=== PATIENT | female | born 1945 | race Caucasian/White ===

== ENCOUNTER 2017-10-27 08:00 | Outpatient (CLI) | payer MEDICARE | END 2017-10-27 08:01 | disposition home or self-care (01) | LOC: BICMAMMO 08:00 | PROVIDERS: ATTEND Obstetrics & Gynecology | DX: R92.8 Other abnormal and inconclusive findings on diagnostic imaging of breast (principal) | CPT/HCPCS: G0206; G0279 ==

== ENCOUNTER 2019-02-27 08:21 | Observation (INO) | payer MEDICARE ==
[2019-02-27 08:40] LABS: #Basophils 0.1 thou/uL (0.0-0.2); #Eosinphils 0.2 thou/uL (0.0-0.7); #Lymphocytes 2.3 thou/uL (1.20-3.40); #Monocytes 0.5 thou/uL (0.11-0.59); #Neutrophils 3.1 thou/uL (1.40-6.50); %Basophils 1.4 % (0.0-1.0); %Eosinophils 2.9 % (0.0-10.0); %Lymphocytes 36.9 % (21.0-51.0); %Monocytes 8.2 % (0.0-10.0); %Neutrophils 50.6 % (42.0-75.0); Hemoglobin 14.2 g/dL (12.0-16.0); Mean Corpuscular HGB CONC 30.7 g/dL (32.0-36.0); Mean Corpuscular Hemoglobin 28.1 pg (27.0-31.0); Mean Corpuscular Volume 91.5 fL (78.0-98.0); Mean Platelet Volume 8.5 fL (7.4-10.4); Platelet Count 290 thou/uL (130-400); RBC Distribution Width 11.9 % (11.5-14.5); Red Blood Cell (RBC) Count 5.07 mill/uL (4.20-5.40); White Blood Cell (WBC) Count 6.1 thou/uL (4.8-10.8)
--- NOTE | 2019-02-27 08:52 | RAD ---
EXAM: Chest one view: HISTORY: Chest pain COMPARISON: 04/06/2011 FINDINGS: Heart size: Within normal limits. The lungs: Clear of acute process. No evidence for pneumonia, pleural effusion, acute edema, or pneumothorax, or other significant acute process. IMPRESSION: No significant acute intrathoracic disease.
[2019-02-27 09:02] LABS: ALT (SGPT) 22 U/L (8-55); AST (SGOT) 20 U/L (5-34); Albumin 4.2 g/dL (3.4-4.8); Alkaline Phosphatase 89 U/L (40-150); Anion Gap 14 mmol/L (10-20); BUN (Urea Nitrogen) 22 mg/dL (9.8-20.1); Bilirubin, Total 0.7 mg/dL (0.2-1.2); CK (CPK) 75 U/L (29-168); Calc. Creatinine Clearance 0 mL/min (70-130); Calcium 9.5 mg/dL (7.8-10.44); Carbon Dioxide 25 mmol/L (23-31); Chloride 106 mmol/L (98-107); Estimated GFR-MDRD 71; Globulin 2.6 g/dL (2.4-3.5); Glucose 100 mg/dL (83-110); Lipase 110 U/L (8-78); Potassium 3.9 mmol/L (3.5-5.1); Protein, Total 6.8 g/dL (6.0-8.3); Sodium 141 mmol/L (136-145)
[2019-02-27] MEDS ORDERED: Ondansetron PF 4 MG/2 ML Vial ONE ×3 (09:22→11:34)
[2019-02-27] MEDS ORDERED: Famotidine/PF 20 mg/2ml Vial ONE (09:22)
[2019-02-27] MEDS ORDERED: Morphine 4 MG/ML VIAL ONE (09:22)
[2019-02-27] MEDS ORDERED: Aspirin Chewable 81 MG TAB ONE (09:48)
[2019-02-27] MEDS ORDERED: Metoclopramide HCl 10 MG/2 ML VIAL ONE (11:49)
[2019-02-27 12:38] LABS: Troponin I Less than 0.010 ng/mL (< 0.028)
[2019-02-27] MEDS ORDERED: HYDROcodone/Acetaminophen 7.5/325 mg Tablet PO PRN (12:40)
[2019-02-27] MEDS ORDERED: Acetaminophen 325 MG TAB PO PRN ×2 (12:40→15:23)
[2019-02-27] MEDS ORDERED: Ondansetron PF 4 MG/2 ML Vial IVP PRN (12:40)
[2019-02-27] MEDS ORDERED: Morphine 4 MG/ML VIAL SLOW IVP PRN (13:15)
[2019-02-27] MEDS ORDERED: ISOVUE-370 76%-LOCM 1 ML ONE (14:27)
[2019-02-27] MEDS ORDERED: Iopamidol 370 76% 50 ML VIAL FS ONE (14:27)
[2019-02-27 15:11] LABS: Troponin I Less than 0.010 ng/mL (< 0.028)
--- NOTE | 2019-02-27 15:16 | CT ---
Exam: Abdomen CT scan with and without IV contrast with multiphase imaging: HISTORY: Abdominal pain, elevated lipase. FINDINGS: Minimal linear parenchymal changes in the lung bases having more the appearance of chronic change or mild subsegmental atelectasis. 1.0 cm diameter nonspecific area of minimal arterial enhancement in the dome of the right lobe of the liver with normal noncontrast and delayed imaging, probably a normal perfusion variant. Status post cholecystectomy. Dilatation of the common bile duct up to 1.1 cm with some minimal diffuse intra hepatic ductal dilatation as well as some mild dilatation of the pancreatic duct. No evidence for focal pancreatic mass or abnormal fat stranding peripancreatic fluid to suggest CT evidence for acute pancreatitis. Spleen is unremarkable. Adrenal glands are unremarkable. Slight fullness of both right and left renal upper collecting systems abnormal problem right side but without evidence for ov ert acute obstruction. No renal calculus. Probable small hiatal hernia. 0.5 cm diameter fatty density in the third portion the duodenum probably a small lipoma. IMPRESSION: Unremarkable appearing pancreas. Status post cholecystectomy with common duct and intrahepatic ducts dilatation with mild pancreatic ductal dilatation. Tiny fatty density in the third portion of duodenum probably a small lipoma.
[2019-02-27 16:09] VITALS: BMI 29.5
[2019-02-27] MEDS: Sodium Chloride 0.9% 1,000 ML IV SCH (16:58)
[2019-02-27] MEDS ORDERED: Enoxaparin Sodium 40 MG/0.4 ML SYRINGE SC SCH (17:30)
[2019-02-27] MEDS ORDERED: Sodium Chloride 0.9% (PF) 10 ML VIAL FS PRN (18:21)
[2019-02-27] MEDS ORDERED: Promethazine HCl 25 MG/ML VIAL IM/IV PRN (18:36)
--- NOTE | 2019-02-27 19:00 | HP ---
HISTORY OF PRESENT ILLNESS: This is a 73-year-old white female, relatively healthy, who presents with acute onset of abdominal pain. The patient was doing well until 7 a.m. this morning. She awoke with severe upper abdominal pain. This lasted for 5 to 10 minutes and subsided and then returned immediately. It seemed to come and go. She then presented to the emergency room, where she was given morphine IV. However, that did make her nauseated. Last night she had a taco salad with apple pie. She has no prior history of heart disease. No prior history of hypertension or hyperlipidemia. She is on minimal medications. PAST MEDICAL HISTORY: Allergies history and a 20 year tobacco history, quit in 1989. She is postmenopausal. PAST SURGICAL HISTORY: Include dental surgery, JEFF-BSO, history of bladder suspension, cholecystectomy, appendectomy, and colonoscopy. FAMILY HISTORY: Father with alcoholism. Mother was at 86 years of age. Sibling with pancreatic cancer, who at 72. She does have 1 daughter. SOCIAL HISTORY: She is a nonsmoker. She has a 20 year tobacco history, quit in 1989. She does not drink alcohol. She is retired. She is . She has 1 daughter. She walks her dog daily. MEDICATIONS: Include; 1. Estradiol 0.5 daily. 2. Multivitamin daily. 3. Calcium daily. 4. Fish oil 1000 daily. REVIEW OF SYSTEMS: As above. PHYSICAL EXAMINATION: VITAL SIGNS: Blood pressure 150/96, pulse 63, respirations 15, and afebrile. HEENT: Clear. NECK: Supple. HEART: Regular rate and rhythm. LUNGS: Clear. ABDOMEN: Soft. Epigastric tenderness to palpation. EXTREMITIES: No edema. LABORATORY DATA: White count is 6.1, H and H 14 and 46. Electrolytes normal. Creatinine 0.8 and BUN 22. Troponin 1 less than 0.010 x2. Lipase elevated at 110. ASSESSMENT: Epigastric pain with elevated lipase, possible acute pancreatitis. No prior history. Doubt this is cardiac in origin. Full she does have a. She is status post cholecystectomy. PLAN: 1. IV hydration. 2. Morphine for pain control. 3. Pepcid IV q.12. 4. CT abdomen with and without contrast, rule out possible pancreatic issue. 5. Recheck CBC, comprehensive amylase, and lipase in the a.m. 6. Consult Dr. Mora. Job ID: [id number]
[2019-02-27] MEDS ORDERED: Promethazine HCl 25 MG in Sodium Chloride 0.9% 50 ML IVPB PRN (20:14)
[2019-02-27] MEDS ORDERED: Pantoprazole 40 MG VIAL IVP SCH (21:00)
[2019-02-27] MEDS ORDERED: Famotidine/PF 20 mg/2ml Vial SLOW IVP SCH (21:00)
[2019-02-27] MEDS ORDERED: Promethazine HCl 12.5 MG in Sodium Chloride 0.9% 50 ML IVPB PRN (21:03)
[2019-02-28] MEDS: Sodium Chloride 0.9% 1,000 ML IV SCH (01:05)
--- NOTE | 2019-02-28 02:08 | CON ---
DATE OF CONSULTATION: 02/27/2019 HISTORY OF PRESENT ILLNESS: Ms. Coronel is a pleasant 73-year-old female, whom I was seen previously for colon cancer screening several years ago. She remembered that event, however, I did not. She was feeling in her normal state of health when earlier this morning she was awoken with some lower chest and upper abdomen severe tight pain. She states it was very tight squeezing pain. When this was happening, she was little bit dyspneic. She got a little diaphoretic. It relaxed. She had some vomiting and then it happened again. With that, they went ahead and came to the emergency room here. She ruled out for NH with an EKG and several cardiac enzymes. She was given some fluids, some Zofran, some Phenergan, some Reglan, PPI, and she had labs and a CAT scan done. The labs were completely normal except for a lipase of 110. CAT scan showed abnormal pancreas with a prominent common bile duct and hepatic duct and slight pancreatic ductal dilatation, and possibly a small lipoma in the third portion of duodenum. There were no signs of acute pancreatitis. The patient was admitted to the hospital. She is being started on IV fluid fluids at 125 an hour. She has been put on morphine and Zofran. She has been put on Pepcid. An echocardiogram was ordered for tomorrow. PAST MEDICAL HISTORY: Negative for reflux. Positive for previous appendectomy, hysterectomy, and cholecystectomy. SOCIAL HISTORY: Does not drink, use drugs, or smoke. ALLERGIES: NONE KNOWN. HOME MEDICATIONS: Estradiol. REVIEW OF SYSTEMS: CONSTITUTION: Negative for weight loss, change in appetite, fever, or chills. HEENT negative. CARDIOVASCULAR: She has had no recent substernal chest pain with exertion, orthopnea, dyspnea with exertion. All chest pain issues are new today. RESPIRATORY: No cough or shortness of breath. She was feeling short of breath when she was having acute pain. GI: The patient presently denies diarrhea, at least in the emergency room she states that she did have some. MUSCULOSKELETAL: Normal. SKIN: Normal. ENDOCRINE: Normal. MEDICATIONS: Here, 1. Tylenol. 2. [place]. 3. Lovenox. 4. Pepcid. 5. Morphine. 6. Zofran. 7. Normal saline at 125/hour. PHYSICAL EXAMINATION: VITAL SIGNS: Temperature 98, pulse 69, blood pressure 148/72. GENERAL: She is resting comfortably in bed. She is a little bit nauseated. Oropharynx, no lesions. NECK: Supple without adenopathy. LUNGS: Clear. HEART: Regular rate and rhythm without clicks, rubs, or murmurs. ABDOMEN: Soft and nontender with no rebound or guarding. LABORATORY DATA: White count 6.1, hemoglobin 14.2, platelet count is 290. D-dimer 0.55. Comprehensive metabolic profile; BUN of 22, creatinine 0.8. Liver function tests normal. AST and ALT are 20 and 22, bilirubin is 0.7. Cardiac enzymes negative. Lipase 110. CT scan films reviewed, report reviewed. ASSESSMENT: Acute onset of abdominal pain and lower chest pain this morning. It is a spasm like pain, tight, constricting, with no signs of myocardial infarction. She does have mildly elevated D-dimer, she is on Lovenox, but she has no shortness of breath. There is no radiation of pain to the back. She does have mildly elevated lipase of 110, which is nonspecific, does not confer the diagnosis of pancreatitis especially with CAT scan showing no pancreatic inflammation. Differential diagnoses include esophageal spasm, reflux, early pancreatitis could be etiology with early imaging and blood tests not catching the full process. Viral gastroenteritis, however, is much more likely. RECOMMENDATIONS: Change to IV PPI. Recheck lipase now and recheck labs in the morning. Agree with IV fluids. We will give her some Phenergan and Zofran as well for nausea. Job ID: [id number]
[2019-02-28 07:05] LABS: #Eosinphils 0.1 thou/uL (0.0-0.7); #Lymphocytes 1.6 thou/uL (1.20-3.40); #Monocytes 0.6 thou/uL (0.11-0.59); #Neutrophils 4.9 thou/uL (1.40-6.50); %Basophils 0.4 % (0.0-1.0); %Eosinophils 0.9 % (0.0-10.0); %Lymphocytes 22.4 % (21.0-51.0); %Neutrophils 68.3 % (42.0-75.0); Hemoglobin 12.6 g/dL (12.0-16.0); Mean Corpuscular HGB CONC 33.3 g/dL (32.0-36.0); Mean Corpuscular Hemoglobin 31.1 pg (27.0-31.0); Mean Corpuscular Volume 93.3 fL (78.0-98.0); Mean Platelet Volume 8.5 fL (7.4-10.4); Platelet Count 236 thou/uL (130-400); Red Blood Cell (RBC) Count 4.07 mill/uL (4.20-5.40); White Blood Cell (WBC) Count 7.2 thou/uL (4.8-10.8)
[2019-02-28 07:26] LABS: ALT (SGPT) 24 U/L (8-55); AST (SGOT) 19 U/L (5-34); Albumin 3.4 g/dL (3.4-4.8); Alkaline Phosphatase 69 U/L (40-150); Anion Gap 7 mmol/L (10-20); BUN (Urea Nitrogen) 16 mg/dL (9.8-20.1); Bilirubin, Total 0.7 mg/dL (0.2-1.2); Calc. Creatinine Clearance 88 mL/min (70-130); Calcium 8.2 mg/dL (7.8-10.44); Carbon Dioxide 28 mmol/L (23-31); Chloride 110 mmol/L (98-107); Estimated GFR-MDRD 82; Globulin 2.2 g/dL (2.4-3.5); Glucose 80 mg/dL (83-110); Lipase 12 U/L (8-78); Potassium 3.3 mmol/L (3.5-5.1); Protein, Total 5.6 g/dL (6.0-8.3); Sodium 142 mmol/L (136-145)
[2019-02-28 07:52] VITALS: BP 136/67; TEMP 98.4
--- NOTE | 2019-02-28 07:53 | DIS ---
DATE OF ADMISSION: 02/27/2019 DATE OF DISCHARGE: 02/28/2019 DISCHARGE DIAGNOSES: 1. Abdominal/chest pain. 2. Esophageal spasm. DISCHARGE MEDICATIONS: 1. Protonix 40 daily. 2. Estradiol 0.5 daily. BRIEF HISTORY: A 73-year-old white female, relatively healthy, presented with abdominal pain. She was doing well until approximately 7:00 a.m. in the morning and awoke with upper abdominal pain. It lasted for 5 to 10 minutes and then reoccurred. It seemed to come and go. The night prior, she had a large taco salad with apple pie. No complaints of diaphoresis or shortness of breath. HOSPITAL COURSE: Cardiac enzymes were found to be negative. The patient was given Protonix with relief of pain. The pain has not recurred since admission. She is doing well this morning. She was seen by Dr. Mora, who agreed with esophageal spasm. Lipase was mildly elevated. CT scan of the abdomen was negative. The patient is doing well. She will be discharged on Protonix daily. She will follow up in the office in 1 week. Job ID: [id number]
[2019-02-28] MEDS ORDERED: Enoxaparin Sodium 40 MG/0.4 ML SYRINGE SC SCH (09:00)
== END 2019-02-28 10:25 | disposition home or self-care (01) ==
LOC: ERS 08:21 → ERHOLD 10:10 → 2SW 14:49
PROVIDERS: ADMIT Family Medicine; ATTEND Family Medicine
DX: K22.4 Dyskinesia of esophagus (principal); R79.1 Abnormal coagulation profile; Z87.891 Personal history of nicotine dependence; Z79.899 Other long term (current) drug therapy; Z79.01 Long term (current) use of anticoagulants
CPT/HCPCS: 71045; 74170; 80053 ×2; 82550; 83690 ×2; 84484 ×2; 85025 ×2; 85379; 93005; 96361; 96374; 96375 ×2; 96376 ×2; 99285; G0378 ×3; 36415; C9113; J1650; J2270; J2405; J2550; J2765; J7050; Q9966; Q9967; S0028

== ENCOUNTER 2020-07-30 12:29 | Outpatient (CLI) | payer MEDICARE ==
--- NOTE | 2020-07-30 15:52 | MRI ---
MRI OF THE RIGHT KNEE WITHOUT CONTRAST: INDICATION: Internal derangement. COMPARISON: Right knee radiograph dated 04/15/2020. FINDINGS: There is a moderate-sized semimembranosis-medial gastrocnemius popliteal cyst. There is mild joint e ffusion. Articular cartilage of the patellofemoral compartment appears relatively well maintained. There is d iffuse moderate chondral thinning involving the medial femorotibial joint compartment with small garth inal osteophytes. Articular cartilage of the lateral femorotibial compartment is relatively well main tained. There is a multidirectional predominantly horizontally oriented oblique tear involving the body, post erior junction, and posterior horn of the medial meniscus with partial medial extrusion. There is a small displaced meniscal flap seen within the intercondylar notch measuring approximately 4 mm on silva ge 17 of series 8. The lateral meniscus is intact. The ACL, PCL, MCL, and LCLC are intact. The extensor mechanism is well maintained. There is a 1 cm suspected subchondral insufficiency fracture involving the medial tibial plateau with surrounding marrow edema on image 15 of series 8, image 19 of series 9. There is mild edema involvi ng the subchondral bone plate of the medial femoral condyle. There is a small bone island seen withi n the posteromedial femoral condyle. IMPRESSION: 1. Mild osteoarthrosis of the right knee predominantly affecting the medial femorotibial joint zay rtment with a multidirectional, complex tear involving the medial meniscus with medial extrusion. The lateral meniscus appears intact. 2. Subchondral insufficiency-type fracture involving the medial tibial plateau with mild surrounding edema. Mild reactive edema in the medial femoral condyle. 3. The anterior cruciate ligament, posterior cruciate ligament, medial collateral ligament, and LCLC , and extensor mechanisms are intact. POS: Mack
== END 2020-07-30 12:30 | disposition home or self-care (01) ==
LOC: BICMRI 12:29
PROVIDERS: ATTEND Orthopaedic Surgery
DX: M23.91 Unspecified internal derangement of right knee (principal); M19.011 Primary osteoarthritis, right shoulder; S83.231A Complex tear of medial meniscus, current injury, right knee, initial encounter; M84.461A Pathological fracture, right tibia, initial encounter for fracture; R60.0 Localized edema

== ENCOUNTER 2020-08-15 06:55 | Outpatient (CLI) | payer MEDICARE, OTHER ==
[2020-08-15 14:04] LABS: #Basophils 0.1 thou/uL (0.0-0.2); #Eosinphils 0.4 thou/uL (0.0-0.7); #Lymphocytes 1.8 thou/uL (1.20-3.40); #Monocytes 0.5 thou/uL (0.11-0.59); #Neutrophils 4.1 thou/uL (1.40-6.50); %Basophils 0.8 % (0.0-1.0); %Eosinophils 6.2 % (0.0-10.0); %Monocytes 6.7 % (0.0-10.0); %Neutrophils 60.2 % (42.0-75.0); Hemoglobin 14.5 g/dL (12.0-16.0); Mean Corpuscular HGB CONC 33.6 g/dL (32.0-36.0); Mean Corpuscular Hemoglobin 31.5 pg (27.0-31.0); Mean Corpuscular Volume 93.9 fL (78.0-98.0); Mean Platelet Volume 8.8 fL (7.4-10.4); Platelet Count 266 thou/uL (130-400); RBC Distribution Width 11.7 % (11.5-14.5); Red Blood Cell (RBC) Count 4.59 mill/uL (4.20-5.40); White Blood Cell (WBC) Count 6.9 thou/uL (4.8-10.8)
[2020-08-16 12:05] LABS: SARS-CoV-2 MS2 Positive; SARS-CoV-2 N Gene Negative; SARS-CoV-2 S Gene Negative; SARS-CoV-2 by NAA Not Detected (NotDetected); SARS-CoV-2 orf1ab Negative
--- NOTE | 2020-08-22 13:20 | EKG ---
Test Reason : Blood Pressure : / mmHG Vent. Rate : 074 BPM Atrial Rate : 074 BPM P-R Int : 144 ms QRS Dur : 090 ms QT Int : 362 ms P-R-T Axes : 046 -18 -03 degrees QTc Int : 401 ms Normal sinus rhythm Nonspecific ST and T wave abnormality Abnormal ECG No previous ECGs available Confirmed by DR. Justa SOLIMAN ([id number]) on 08/22/2020 1:19:40 PM Referred By: CAROLYN Confirmed By:DR. Justa SOLIMAN
== END 2020-08-15 06:56 | disposition home or self-care (01) ==
LOC: LABBT 06:55
PROVIDERS: ATTEND Orthopaedic Surgery
DX: Z01.818 Encounter for other preprocedural examination (principal); Z20.828 Contact with and (suspected) exposure to other viral communicable diseases; M23.91 Unspecified internal derangement of right knee
CPT/HCPCS: 85025; 93005; U0003; 87635; 93010

== ENCOUNTER 2020-08-20 06:04 | Day surgery (SDC) | payer MEDICARE ==
[2020-08-19 08:51] VITALS: BMI 33.6
--- NOTE | 2020-08-19 13:12 | HP ---
HISTORY OF PRESENT ILLNESS: The patient is a 75-year-old female with approximately 6-month history of problems with her right knee, which developed after stepping, but no major injury. She has persistent pain with reversal activities. She obtained partial relief from a previous injection in March and use of ibuprofen and naproxen, but she continues to have pain with day-to-day activities including walking, getting dressed, and sleeping. PAST MEDICAL HISTORY: The patient is otherwise in good health. She has had previous appendectomy, cholecystectomy, and hysterectomy. She has no major medical problems. She takes hormone replacement with multivitamins. ALLERGIES: SHE HAS NO KNOWN ALLERGIES. FAMILY HISTORY: Otherwise, unremarkable. SOCIAL HISTORY: Otherwise, unremarkable. REVIEW OF SYSTEMS: Otherwise, unremarkable. PHYSICAL EXAMINATION: GENERAL: Reveals a healthy female. HEENT: Unremarkable. NECK: Supple. CHEST: Clear. HEART: Regular rate and rhythm. ABDOMEN: Soft and nontender. PELVIC, RECTAL, AND BREASTS: Deferred. EXTREMITIES: Pertinent findings of the right knee, there is no effusion. There is normal alignment. There is tenderness over the medial joint line. Range of motion is 0 to 120 degrees and pain with further flexion. There is pain with attempted Ras's maneuver. There is no instability. Neurovascular exam is intact. There is a slight right antalgic gait. The distal pulses are 1+. IMAGING DATA: X-rays of the right knee are essentially normal. MRI scan of the right knee reveals mild degenerative changes most marked in the medial compartment with some increased uptake in the tibial plateau consistent with subchondral edema and subchondral insufficiency. There was a complex tear of the body of the medial meniscus. The lateral meniscus and cruciate ligaments and collateral ligaments are intact. IMPRESSION: Internal derangement of right knee with medial meniscal tear, possible component of degenerative joint disease. PLAN: Arthroscopy of right knee with partial medial meniscectomy and/or debridement and shaving. The nature of the surgery, length of recovery, and potential complications such as infection, loss of motion, incomplete relief, thromboembolic phenomenon, neurovascular injury, posttraumatic degenerative arthritis, recurrent tear, need for additional treatment and repeat surgery have been discussed in detail. Job ID: [id number]
[2020-08-20] MEDS ORDERED: Midazolam HCl 2 mg/2 ml Vial ONE ×2 (06:47→06:53)
[2020-08-20] MEDS ORDERED: Fentanyl 100 MCG/2 ML VIAL ONE (06:53)
[2020-08-20] MEDS ORDERED: Bupivacaine HCl 0.5%/Epinephrine 1:200,000/PF 30 ml Vial ONE (06:58)
--- NOTE | 2020-08-20 09:03 | OP ---
DATE OF PROCEDURE: 08/20/2020 ANESTHESIA: General PREOPERATIVE DIAGNOSES: Medial meniscal tear and degenerative joint disease, right knee. POSTOPERATIVE DIAGNOSES: Medial meniscal tear and degenerative joint disease, right knee. PROCEDURES PERFORMED: Arthroscopy of right knee and partial medial meniscectomy. OPERATIVE FINDINGS: Examination under anesthesia revealed the knee to be stable. At the arthroscopy, there was minimal degenerative change of the patellofemoral joint. There was a complex tear of the posterior horn of the medial meniscus with a flap component, a large horizontal cleavage component necessitating removal, essentially the entire posterior horn. There was grade 2 and very early grade 3 changes of the weightbearing surface in medial femoral condyle. No areas of exposed bone. ACL was intact. Lateral meniscus was intact. Lateral compartment was essentially normal. DESCRIPTION OF PROCEDURE: After satisfactory anesthesia was induced in supine position, the patient was placed in a leg rivera and then prepped and draped in routine manner. The right leg was elevated, extended with an Esmarch bandage and the tourniquet inflated to 300 mmHg. [place] arthroscope introduced in the anterolateral portal, probed through an anteromedial portal, and inflow and outflow accomplished through the scope using [employer] arthroscopy pump. Arthroscopy was carried out and the above findings noted. All findings were documented with video printer and hard copies were made. Posterior horn of the medial meniscus was debrided with the use of basket forceps and motorized shaver. Essentially, the entire posterior horn had to be removed with remaining mid and anterior horn were intact and stable to probing. The knee was then copiously irrigated through the scope and all instruments were then withdrawn. A 20 mL of 0.5% Marcaine with epinephrine was instilled into the knee joint and additional 10 mL injected about the portal sites. The portal sites were closed with interrupted 3-0 nylon and a sterile bulky compressive dressing was applied and the tourniquet deflated after 25 minutes. The foot promptly pinked up and the patient was awakened and taken to the recovery room in stable condition. There were no apparent intraoperative complications. The estimated blood loss was negligible. The patient will be discharged home in satisfactory condition with an ice and elevation, use of a walker and home exercise program by the Physical Therapy Department. She is given written wound care instructions and has [place] 5 at home for pain. She will be rechecked in my office in approximately 10 days or sooner if there are any problems prior to that time. Job ID: [id number]
[2020-08-20] MEDS ORDERED: Dexamethasone 20 MG/5 ML VIAL ONE (09:29)
[2020-08-20] MEDS ORDERED: Lidocaine 1% PF 5 ML VIAL ONE (09:29)
[2020-08-20] MEDS ORDERED: Ondansetron PF 4 MG/2 ML Vial ONE (09:29)
[2020-08-20] MEDS ORDERED: PROPOFOL 200 MG/20 ML VIAL ONE (09:29)
[2020-08-20] MEDS ORDERED: Labetalol HCl 100 MG/20 ML VIAL ONE (09:29)
[2020-08-20] MEDS ORDERED: HYDROcodone/Acetaminophen 5/325 mg Tablet ONE (09:44)
== END 2020-08-20 10:58 | disposition home or self-care (01) ==
LOC: SDC 06:04
PROVIDERS: ATTEND Orthopaedic Surgery
PROC: 0SBC4ZZ Excision of Right Knee Joint, Percutaneous Endoscopic Approach (ICD-10-PCS; principal; 2020-08-20)
DX: S83.231A Complex tear of medial meniscus, current injury, right knee, initial encounter (principal); M17.11 Unilateral primary osteoarthritis, right knee; M23.8X1 Other internal derangements of right knee; Z87.891 Personal history of nicotine dependence; Z79.818 Long term (current) use of other agents affecting estrogen receptors and estrogen levels; Z79.899 Other long term (current) drug therapy
CPT/HCPCS: J0690; J1100; J2250; J2405; J2704; J3010

== ENCOUNTER 2021-11-18 11:06 | Outpatient (CLI) | payer MEDICARE | END 2021-11-18 11:07 | disposition home or self-care (01) | LOC: BICMAMMO 11:06 | PROVIDERS: ATTEND Family Medicine | DX: Z12.31 Encounter for screening mammogram for malignant neoplasm of breast (principal); Z91.89 Other specified personal risk factors, not elsewhere classified | CPT/HCPCS: 77063; 77067 ==

== ENCOUNTER 2022-03-09 10:48 | Outpatient (CLI) | payer MEDICARE | END 2022-03-09 10:49 | disposition home or self-care (01) | LOC: BICRAD 10:48 | PROVIDERS: ATTEND Family Medicine | DX: R05.3 Chronic cough (principal) | CPT/HCPCS: 71046 ==

== ENCOUNTER 2022-12-29 11:16 | Outpatient (CLI) | payer MEDICARE | END 2022-12-29 11:17 | disposition home or self-care (01) | LOC: BICMAMMO 11:16 | PROVIDERS: ATTEND Family Medicine | DX: Z12.31 Encounter for screening mammogram for malignant neoplasm of breast (principal); Z91.89 Other specified personal risk factors, not elsewhere classified | CPT/HCPCS: 77063; 77067 ==